=== PATIENT | male | born 1975 | race Two or more races ===

== ENCOUNTER 2021-01-10 20:35 | Emergency (ER) | payer SELFPAY ==
[2021-01-10] MEDS ORDERED: Sodium Chloride 0.9% 10 ML Syringe FLUSH PRN (21:35)
[2021-01-10] MEDS ORDERED: HYDROmorphone 1 MG/ML Syringe IVPUSH ONE (21:37)
--- NOTE | 2021-01-10 22:02 | EDM.PDOC ---
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 This happened at 8:00 this evening. He says he landed directly on his back but didn't hit his head. He denies LOC, pain in head, neck, upper back. Denies pain, numbness or weakness down either leg or feet. His friend helped him to his feet and basically had to lift him completely, under his arms. He doesn't have any established PCP here. Middle Back Pain Score (Numeric/FACES): 5 - Related Data Allergies Allergy/AdvReac Type Severity Reaction Status Date / Time No Known Allergies Allergy Verified 01/10/21 21:17 Home Meds: Home Meds . [No Known Home Meds] 01/10/21 [History] ED ROS GENERAL - Review of Systems Review Of Systems: See Below Constitutional: Denies: Fever, Weakness HEENT: Denies: Ear Pain, Throat Pain, Vision Change Respiratory: Denies: Shortness of Breath, Cough Cardiovascular: Denies: Chest Pain, Syncope GI/Abdominal: Reports: Abdominal Pain (the pain from his low back radiates around to the abdomen somewhat). Denies: Nausea, Vomiting : Denies: Dysuria, Incontinence (no loss of bowel or bladder function) Musculoskeletal: Reports: Back Pain. Denies: Neck Pain, Shoulder Pain, Arm Pain, Hand Pain, Leg Pain, Foot Pain Skin: Denies: Cyanosis, Jaundice, Mottled, Pallor, Diaphoresis Neurological: Denies: Confusion, Dizziness, Headache, Seizure, Syncope, Trouble Speaking Psychiatric: Denies: Agitation, Anxiety, Confusion ED EXAM, GENERAL - Physical Exam Exam: See Below Exam Limited By: No Limitations General Appearance: Alert, WD/WN, No Apparent Distress Eye Exam: Bilateral Eye: EOMI, Normal Inspection, PERRL Ears: Normal External Exam, Hearing Grossly Normal Nose: Normal Inspection, No Blood Throat/Mouth: Normal Inspection, Normal Lips, Normal Voice, No Airway Compromise Head: Atraumatic, Normocephalic, Sinus Tenderness Neck: Supple, Non-Tender, Full Range of Motion. No: Tender Lateral, Tender Midline Respiratory/Chest: No Respiratory Distress, Lungs Clear, Normal Breath Sounds, No Accessory Muscle Use Cardiovascular: Regular Rate, Rhythm, No Murmur GI/Abdominal: Normal Bowel Sounds, Soft, Non-Tender, No Organomegaly, No Distention, No Abnormal Bruit. No: Guarding, Rigid Back Exam: Vertebral Tenderness (lower thoracic and upper lumbar). No: Paraspinal Tenderness Extremities: Normal Inspection, Normal Range of Motion, Non-Tender Neurological: Alert, Oriented, CN II-XII Intact, Normal Cognition, No Motor/Sensory Deficits (throughout lower extremities bilat) Psychiatric: Normal Affect, Normal Mood Skin Exam: Warm, Dry, Intact, Normal Color, No Rash Course - Vital Signs Last Recorded V/S: Last Vital Signs Temp 98.1 F 01/10/21 20:44 Pulse 89 01/10/21 20:44 Resp 20 01/10/21 20:44 BP 140/92 H 01/10/21 20:44 Pulse Ox 95 01/10/21 20:44 - Orders/Labs/Meds Orders: Active Orders 24 hr Category Date Time Status Peripheral IV Care [RC] . DIRECTED Care 01/10/21 21:35 Active Lumbar Spine wo Cont [CT] Stat Exams 01/10/21 21:01 Ordered Thoracic Spine wo Cont [CT] Stat Exams 01/10/21 21:00 Ordered Sodium Chloride 0.9% [Saline Flush] Med 01/10/21 21:35 Active 10 ml FLUSH Q8HR PRN Peripheral IV Insertion Adult [OM.PC] Routine Oth 01/10/21 21:35 Ordered Medication Orders Sodium Chloride (Sodium Chloride 0.9% 10 Ml Syringe) 10 ml FLUSH Q8HR PRN PRN Reason: keep vein open Last Admin: 01/10/21 21:38 Dose: 10 ml Documented by: PAUL Meds: Medications Generic Name Dose Route Start Last Admin Trade Name Freq PRN Reason Stop Dose Admin Sodium Chloride 10 ml 01/10/21 21:35 01/10/21 21:38 Sodium Chloride 0.9% 10 Ml Syringe FLUSH 10 ml Q8HR PRN Administration keep vein open Discontinued Medications Generic Name Dose Route Start Last Admin Trade Name Freq PRN Reason Stop Dose Admin Hydromorphone HCl 1 mg 01/10/21 21:37 01/10/21 21:41 Hydromorphone 1 Mg/Ml Syringe IVPUSH 01/10/21 21:38 1 mg ONETIME ONE Administration - Re-Assessments/Exams Free Text/Narrative Re-Assessment/Exam: 01/10/21 22:02 CT shows obvious burst fracture of T12, I believe. Report is pending. 1mg Dilaudid is given and pain is improving. I discussed preliminary findings with patient as well as need for transfer to see ortho/spine. He agrees. I discussed case with Dr. Jordan, ER at [facility] who accepted for transfer and will consult ortho there. We discussed spine precautions and Dr. Jordan advised log-roll but no back board. Will send via ambulance. 01/10/21 22:25 CT reports unstable burst fracture of T11. Patient is doing okay. Reports pain at 4 now. He will tell us if he needs more pain control. 01/10/21 22:32 Patient is stable. Departure - Departure Time of Disposition: 22:30 Disposition: DC/Tfer to Acute Hospital 02 Condition: Good Clinical Impression: Unstable burst fracture of T11 vertebra Qualifiers: Encounter type: initial encounter Fracture type: closed Qualified Code(s): S22.082A - Unstable burst fracture of T11-T12 vertebra, initial encounter for closed fracture - Discharge Information Referrals: Kim Santiago MD [Primary Care Provider] - Sepsis Event Note (ED) - Evaluation Sepsis Screening Result: No Definite Risk - Focused Exam Vital Signs: Vital Signs Temp Pulse Resp BP Pulse Ox 01/10/21 20:44 98.1 F 89 20 140/92 H 95 - My Orders Last 24 Hours: My Active Orders 01/10/21 21:00 Thoracic Spine wo Cont [CT] Stat 01/10/21 21:01 Lumbar Spine wo Cont [CT] Stat 01/10/21 21:35 Peripheral IV Care [RC] . DIRECTED Sodium Chloride 0.9% [Saline Flush] 10 ml FLUSH Q8HR PRN Peripheral IV Insertion Adult [OM.PC] Routine - Assessment/Plan Last 24 Hours: My Active Orders 01/10/21 21:00 Thoracic Spine wo Cont [CT] Stat 01/10/21 21:01 Lumbar Spine wo Cont [CT] Stat 01/10/21 21:35 Peripheral IV Care [RC] . DIRECTED Sodium Chloride 0.9% [Saline Flush] 10 ml FLUSH Q8HR PRN Peripheral IV Insertion Adult [OM.PC] Routine
--- NOTE | 2021-01-11 08:19 | CT ---
[id number] CT/CT Thoracic Spine WO IV Exam: CT Thoracic Spine WO IV Clinical Data: TRAUMA COMPARISON: NO PREVIOUS SIMILAR EXAM IS AVAILABLE FINDINGS: There is an unstable burst fracture involving the T11 vertebral body identified on image 149, series 2 This also is seen on image 44, series 6 There is slight retropulsion of bone into the spinal canal There is compromise of the spinal canal. Report was provided at the time of the exam Surgical consultation is needed. IMPRESSION: UNSTABLE T11 FRACTURE Chetan Mancini MD 01/11/21 0818 Thank you for allowing us to participate in the care of your patient.
--- NOTE | 2021-01-11 08:26 | CT ---
[id number] CT/CT Lumbar Spine WO IV Exam: CT Lumbar Spine WO IV Clinical Data: TRAUMA COMPARISON: NO PREVIOUS SIMILAR EXAM IS AVAILABLE FINDINGS: A fracture is seen at what is considered T12 The exact numbering is important Based upon the assumption of 5 vertebrae of lumbar configuration this is T12 This was described as T11 on the CAT scan of the thoracic spine. There is a burst fracture of this level There is, otherwise of the spinal canal There are no other fracture is seen IMPRESSION: UNSTABLE 2 COLUMN BURST FRACTURE WITH 50% LOSS OF HEIGHT AND COMPROMISE OF SPINAL CANAL AT T12 Chetan Mancini MD 01/11/21 0824 Thank you for allowing us to participate in the care of your patient.
== END 2021-01-10 22:52 ==
LOC: KA.ED 20:35
DX: S22.082A Unstable burst fracture of T11-T12 vertebra, initial encounter for closed fracture (principal); W18.39XA Other fall on same level, initial encounter
CPT/HCPCS: 72128; 72131; 96374; 99284; 99285-25; J1170